=== PATIENT | male | born 1950 | race Caucasian/White ===

== ENCOUNTER 2018-10-16 02:17 | Inpatient (IN) | payer OTHER ==
[2018-10-16 02:40] LABS: ADD MAN DIFF? NO
[2018-10-16 02:42] LABS: WHITE BLOOD COUNT 7.1 10^3/ul (4.8-10.8)
[2018-10-16 02:42] LABS: BASOPHIL # 0.1 10^3/ul (0.0-0.1); BASOPHILS % 0.7 % (0.0-2.0); EOSINOPHILS # 0.2 10^3/ul (0.0-0.5); EOSINOPHILS % 2.8 % (0.0-7.0); HEMATOCRIT 33.3 % (42.0-52.0); LYMPHOCYTES # 0.7 10^3/ul (0.8-2.9); LYMPHOCYTES % 9.8 % (15.0-51.0); MEAN CORPUSCULAR HEMOGLOBIN 28.3 pg (29.0-33.0); MEAN CORPUSCULAR VOLUME 94.3 fl (82.0-101.0); MEAN PLATELET VOLUME 12.2 fl (7.4-10.4); MONOCYTE # 0.7 10^3/ul (0.3-0.9); MONOCYTES % 10.4 % (0.0-11.0); NEUTROPHIL # 5.4 10^3/ul (1.6-7.5); NEUTROPHILS % 75.9 % (39.0-77.0); PLATELET COUNT 156 10^3/UL (140-415); RED BLOOD COUNT 3.53 10^6/ul (4.70-6.10); RED CELL DISTRIBUTION WIDTH 16.4 % (11.5-14.5)
[2018-10-16 03:14] LABS: ALANINE AMINOTRANSFERASE 25 IU/L (13-69); ALBUMIN/GLOBULIN RATIO 1.21; ALKALINE PHOSPHATASE 51 IU/L (42-121); ANION GAP 9 (5-13); ASPARTATE AMINO TRANSFERASE 28 IU/L (15-46); BILIRUBIN,INDIRECT 0.5 mg/dl (0-1.1); BILIRUBIN,TOTAL 0.5 mg/dl (0.2-1.3); BLOOD UREA NITROGEN 23 mg/dl (7-20); CALCIUM 9.1 mg/dl (8.4-10.2); CARBON DIOXIDE 33 mmol/L (21-31); CHLORIDE 105 mmol/L (97-110); CREATININE 1.04 mg/dl (0.61-1.24); Estimated GFR > 60 mL/min (>60); GLUCOSE 120 mg/dl (70-220); POTASSIUM 4.3 mmol/L (3.5-5.1); SODIUM 147 mmol/L (135-144); TOTAL PROTEIN 7.3 g/dl (6.1-8.1)
[2018-10-16 03:15] LABS: LACTIC ACID 0.8 mmol/L (0.5-2.0)
[2018-10-16] MEDS: NITROGLYCERIN 2% 1 GM OINT PKT TD (03:15)
[2018-10-16] MEDS: FUROSEMIDE 20 MG INJ IV (03:15)
[2018-10-16 03:25] LABS: B-TYPE NATRIURETIC PEPTIDE 1420 PG/ML (0-125); TROPONIN-I < 0.012 ng/ml (0.000-0.120)
[2018-10-16 03:52] LABS: AADO2 Arterial 294.9 mmHg (7.0-24.0); Allen Test ACCEPTAB; Arterial Base Excess 3.6 mmol/L (-3.0-3); Arterial Blood Gas Oxygen Sat 99.4 mmHG (95.0-98.0); Arterial COHb 0.5 % (0.0-3.0); Arterial Fraction of Oxyhgb 98.6 % (93.0-99.0); Arterial HCO3 32.9 mmol/L (22.0-26.0); Arterial MetHb 0.3 % (0.0-1.5); Arterial Total Hemglobin 10.5 g/dl (12.0-18.0); Blood Gas PS 10; MODE MASK - BIPAP; Site Right Radial
[2018-10-16 03:55] LABS: INR 1.25; PROTIME 15.9 Sec (11.9-14.9); PT RATIO 1.2
[2018-10-16 03:56] LABS: PARTIAL THROMBOPLASTIN TIME 29.3 Sec (23.0-35.0)
[2018-10-16 05:06] LABS: AADO2 Arterial 182.1 mmHg (7.0-24.0); Allen Test ACCEPTAB; Arterial Base Excess 4.2 mmol/L (-3.0-3); Arterial Blood Gas Oxygen Sat 98.6 mmHG (95.0-98.0); Arterial COHb 0.4 % (0.0-3.0); Arterial Fraction of Oxyhgb 97.9 % (93.0-99.0); Arterial HCO3 32.9 mmol/L (22.0-26.0); Arterial MetHb 0.3 % (0.0-1.5); Arterial Total Hemglobin 10.8 g/dl (12.0-18.0); Arterial pCO2 74.3 mmhg (35-45); Blood Gas IEPAP 18/8; Blood Gas PS 10; MODE MASK - BIPAP; Site Right Radial
[2018-10-16 06:11] LABS: AADO2 Arterial 103.9 mmHg (7.0-24.0); Allen Test ACCEPTAB; Arterial Base Excess 7.1 mmol/L (-3.0-3); Arterial Blood Gas Oxygen Sat 96.5 mmHG (95.0-98.0); Arterial COHb 0.6 % (0.0-3.0); Arterial Fraction of Oxyhgb 95.7 % (93.0-99.0); Arterial HCO3 35.4 mmol/L (22.0-26.0); Arterial MetHb 0.2 % (0.0-1.5); Arterial pCO2 72.9 mmhg (35-45); Blood Gas IEPAP 18/8; Blood Gas PS 10; MODE MASK - BIPAP; Site Right Radial
[2018-10-16] MEDS ORDERED: ONDANSETRON 4 MG INJ IV (07:30)
[2018-10-16] MEDS: ALBUTEROL/IPRATROPIUM (NEB) 3 ML AMP HHN ×2 (07:39→15:09)
[2018-10-16 08:43] LABS: AADO2 Arterial 87.9 mmHg (7.0-24.0); Allen Test ACCEPTAB; Arterial Base Excess 7.2 mmol/L (-3.0-3); Arterial Blood Gas Oxygen Sat 97.9 mmHG (95.0-98.0); Arterial COHb 0.8 % (0.0-3.0); Arterial MetHb 0.1 % (0.0-1.5); Blood Gas IEPAP 22/8; Blood Gas PS 14; MODE MASK - BIPAP; Site Left Radial
[2018-10-16] MEDS: APIXABAN 5 MG TABLET PO ×3 (09:00→21:52)
[2018-10-16] MEDS ORDERED: NON-FORMULARY/PATIENT OWN MED (Simvastatin* (Zocor*) 10 MG) PO (09:00)
[2018-10-16] MEDS ORDERED: APIXABAN 5 MG TABLET PO (09:00)
[2018-10-16] MEDS: METHYLPREDNISOLONE 125 MG INJ IV ×3 (11:22→21:52)
[2018-10-16] MEDS: METOCLOPRAMIDE 10 MG TAB PO ×3 (11:22→21:52)
[2018-10-16] MEDS: FINASTERIDE 5 MG TAB PO (11:22)
[2018-10-16] MEDS: BENAZEPRIL 10 MG TAB PO (11:23)
[2018-10-16] MEDS: FENOFIBRATE 145 MG TAB PO (11:23)
[2018-10-16] MEDS: FUROSEMIDE 40 MG INJ IV ×2 (11:26→18:06)
[2018-10-16 11:59] LABS: HEMOGLOBIN A1C 5.3 % (0-5.9)
[2018-10-16 13:09] LABS: ADD UMIC YES; UR ASCORBIC ACID NEGATIVE (NEGATIVE); UR BACTERIA MODERATE /HPF (NONE SEEN); UR BILIRUBIN (Dip) NEGATIVE (NEGATIVE); UR BLOOD (Dip) 3+ mg/dL (NEGATIVE); UR CLARITY CLEAR (CLEAR); UR COLOR YELLOW (YELLOW); UR GLUCOSE (Dip) NEGATIVE (NEGATIVE); UR KETONES (Dip) NEGATIVE (NEGATIVE); UR LEUKOCYTE ESTERASE (Dip) TRACE Leu/ul (NEGATIVE); UR NITRITE (Dip) NEGATIVE (NEGATIVE); UR RBC > 182 /HPF (0-5); UR SPECIFIC GRAVITY (Dip) 1.008 (1.003-1.030); UR TOTAL PROTEIN (Dip) 2+ mg/dl (NEGATIVE); UR UROBILINOGEN (Dip) NEGATIVE (NEGATIVE); UR WBC 6 /HPF (0-5)
[2018-10-16 13:30] LABS: AADO2 Arterial 220.1 mmHg (7.0-24.0); Allen Test ACCEPTAB; Arterial Base Excess -6.1 mmol/L (-3.0-3); Arterial Blood Gas Oxygen Sat 97.8 mmHG (95.0-98.0); Arterial COHb 0.1 % (0.0-3.0); Arterial Fraction of Oxyhgb 97.5 % (93.0-99.0); Arterial HCO3 17.1 mmol/L (22.0-26.0); Arterial MetHb 0.2 % (0.0-1.5); Arterial Total Hemglobin 12.1 g/dl (12.0-18.0); Arterial pCO2 27.3 mmhg (35-45); Blood Gas IEPAP 15/5; Blood Gas PS 10; MODE MASK - BIPAP; Site Right Radial
[2018-10-16] MEDS: LEVOFLOXACIN 750MG/D5W (PMX) 150 ML IVPB (13:33)
[2018-10-16] MEDS: LORATADINE 10 MG TAB PO (21:52)
[2018-10-16] MEDS: ATORVASTATIN 10 MG TAB PO (21:52)
[2018-10-16] MEDS: TERAZOSIN 5 MG CAP PO (23:16)
[2018-10-17] MEDS: ALBUTEROL/IPRATROPIUM (NEB) 3 ML AMP HHN ×3 (00:17→16:55)
[2018-10-17] MEDS: METHYLPREDNISOLONE 125 MG INJ IV ×3 (06:38→21:18)
[2018-10-17] MEDS: FUROSEMIDE 40 MG INJ IV (06:38)
[2018-10-17 07:16] LABS: ADD MAN DIFF? NO
[2018-10-17 07:25] LABS: WHITE BLOOD COUNT 8.5 10^3/ul (4.8-10.8)
[2018-10-17 07:25] LABS: ABNORMAL IP MESSAGE 1; BASOPHILS % 0.1 % (0.0-2.0); HEMATOCRIT 33.1 % (42.0-52.0); HEMOGLOBIN 10.3 g/dl (14.0-18.0); LYMPHOCYTES # 0.5 10^3/ul (0.8-2.9); LYMPHOCYTES % 5.8 % (15.0-51.0); MEAN CORPUSCULAR HEMOGLOBIN 28.5 pg (29.0-33.0); MEAN CORPUSCULAR HGB CONC 31.1 g/dl (32.0-37.0); MEAN CORPUSCULAR VOLUME 91.4 fl (82.0-101.0); MEAN PLATELET VOLUME 12.4 fl (7.4-10.4); MONOCYTE # 0.3 10^3/ul (0.3-0.9); MONOCYTES % 3.1 % (0.0-11.0); NEUTROPHIL # 7.7 10^3/ul (1.6-7.5); NEUTROPHILS % 90.5 % (39.0-77.0); PLATELET COUNT 181 10^3/UL (140-415); POSITIVE DIFF @See below; RED BLOOD COUNT 3.62 10^6/ul (4.70-6.10); RED CELL DISTRIBUTION WIDTH 16.2 % (11.5-14.5)
[2018-10-17 07:41] LABS: MAGNESIUM 1.7 mg/dl (1.7-2.5)
[2018-10-17 07:41] LABS: PHOSPHORUS 4.1 mg/dl (2.5-4.9)
[2018-10-17 07:45] LABS: BLOOD UREA NITROGEN 22 mg/dl (7-20); CALCIUM 9.4 mg/dl (8.4-10.2); CHLORIDE 95 mmol/L (97-110); CREATININE 0.97 mg/dl (0.61-1.24); Estimated GFR > 60 mL/min (>60); GLUCOSE 127 mg/dl (70-220); POTASSIUM 3.8 mmol/L (3.5-5.1); SODIUM 144 mmol/L (135-144)
[2018-10-17 07:52] LABS: ANION GAP 9 (5-13)
[2018-10-17 08:02] LABS: CARBON DIOXIDE 40 mmol/L (21-31)
[2018-10-17] MEDS: FENOFIBRATE 145 MG TAB PO (08:14)
[2018-10-17] MEDS: BENAZEPRIL 10 MG TAB PO (08:14)
[2018-10-17] MEDS: FINASTERIDE 5 MG TAB PO (08:14)
[2018-10-17] MEDS: BISOPROLOL 5 MG TAB PO (08:14)
[2018-10-17] MEDS: APIXABAN 5 MG TABLET PO ×2 (08:15→21:18)
[2018-10-17] MEDS: METOCLOPRAMIDE 10 MG TAB PO ×3 (08:15→21:18)
[2018-10-17] MEDS: LEVOFLOXACIN 750MG/D5W (PMX) 150 ML IVPB (12:09)
[2018-10-17] MEDS: FUROSEMIDE 40 MG TAB PO (17:45)
[2018-10-17] MEDS: ACETAMINOPHEN 325 MG TAB PO (18:36)
[2018-10-17] MEDS: LORATADINE 10 MG TAB PO (21:18)
[2018-10-17] MEDS: ATORVASTATIN 10 MG TAB PO (21:18)
[2018-10-17] MEDS: TERAZOSIN 5 MG CAP PO (21:19)
[2018-10-18] MEDS: ALBUTEROL/IPRATROPIUM (NEB) 3 ML AMP HHN ×3 (00:34→15:39)
[2018-10-18] MEDS: METHYLPREDNISOLONE 125 MG INJ IV (06:41)
[2018-10-18] MEDS: FUROSEMIDE 40 MG TAB PO ×2 (06:42→18:17)
[2018-10-18 07:50] LABS: ADD MAN DIFF? NO
[2018-10-18 07:54] LABS: ABNORMAL IP MESSAGE 1; BASOPHILS % 0.1 % (0.0-2.0); HEMATOCRIT 33.1 % (42.0-52.0); HEMOGLOBIN 10.6 g/dl (14.0-18.0); LYMPHOCYTES # 0.4 10^3/ul (0.8-2.9); LYMPHOCYTES % 3.8 % (15.0-51.0); MEAN CORPUSCULAR HEMOGLOBIN 28.6 pg (29.0-33.0); MEAN CORPUSCULAR VOLUME 89.2 fl (82.0-101.0); MEAN PLATELET VOLUME 12.4 fl (7.4-10.4); MONOCYTE # 0.4 10^3/ul (0.3-0.9); MONOCYTES % 3.7 % (0.0-11.0); NEUTROPHIL # 10.3 10^3/ul (1.6-7.5); NEUTROPHILS % 91.9 % (39.0-77.0); PLATELET COUNT 191 10^3/UL (140-415); POSITIVE DIFF @See below; RED BLOOD COUNT 3.71 10^6/ul (4.70-6.10); RED CELL DISTRIBUTION WIDTH 16.4 % (11.5-14.5)
[2018-10-18 07:54] LABS: WHITE BLOOD COUNT 11.3 10^3/ul (4.8-10.8)
[2018-10-18] MEDS: FENOFIBRATE 145 MG TAB PO (08:32)
[2018-10-18] MEDS: FINASTERIDE 5 MG TAB PO (08:32)
[2018-10-18] MEDS: METOCLOPRAMIDE 10 MG TAB PO ×3 (08:32→20:08)
[2018-10-18] MEDS: BISOPROLOL 5 MG TAB PO (08:32)
[2018-10-18] MEDS: BENAZEPRIL 10 MG TAB PO (08:32)
[2018-10-18] MEDS: APIXABAN 5 MG TABLET PO ×2 (08:32→20:08)
[2018-10-18 08:36] LABS: BLOOD UREA NITROGEN 31 mg/dl (7-20); CALCIUM 9.1 mg/dl (8.4-10.2); CHLORIDE 97 mmol/L (97-110); CREATININE 0.91 mg/dl (0.61-1.24); Estimated GFR > 60 mL/min (>60); GLUCOSE 141 mg/dl (70-220); POTASSIUM 3.4 mmol/L (3.5-5.1); SODIUM 145 mmol/L (135-144)
[2018-10-18 08:43] LABS: ANION GAP 8 (5-13)
[2018-10-18 08:46] LABS: MAGNESIUM 1.8 mg/dl (1.7-2.5)
[2018-10-18 09:00] LABS: CARBON DIOXIDE 40 mmol/L (21-31)
[2018-10-18] MEDS ORDERED: MAGNESIUM SULFATE 2 GM/50 ML 50 ML IVPB (09:30)
[2018-10-18] MEDS: POTASSIUM CHLORIDE (SR) 20 MEQ TAB PO (10:25)
[2018-10-18] MEDS: predniSONE 20 MG TAB PO (10:25)
[2018-10-18] MEDS: MAGNESIUM SULFATE 1 GM/D5W 100 ML IVPB ×2 (10:36→11:36)
[2018-10-18] MEDS ORDERED: CEFEPIME 1GM/50 ML (PMX) 50 ML IVPB (11:00)
[2018-10-18] MEDS: ERTAPENEM SODIUM 1 GM in SOD CHLORIDE 0.9% 100 ML IVPB (12:39)
[2018-10-18] MEDS: FLUTICASONE/VILANTEROL 100-25 INH (13:33)
[2018-10-18] MEDS: ALBUTEROL 0.083% (NEB) 2.5 MG/3 ML AMP HHN (19:50)
[2018-10-18] MEDS: ATORVASTATIN 10 MG TAB PO (20:08)
[2018-10-18] MEDS: LORATADINE 10 MG TAB PO (20:08)
[2018-10-18] MEDS: TERAZOSIN 5 MG CAP PO (20:08)
[2018-10-19] MEDS ORDERED: BISOPROLOL 5 MG TAB PO (09:00)
== END 2018-10-18 20:23 | DRG 291 ==
LOC: TEL 10-18 13:49 → E/R 02:17 → TEL 05:33
PROVIDERS: Legal Medicine
PROC: 5A09357 Assistance with Respiratory Ventilation, Less than 24 Consecutive Hours, Continuous Positive Airway Pressure (ICD-10-PCS; principal; 2018-10-16)
DX: I11.0 Hypertensive heart disease with heart failure (principal); J96.02 Acute respiratory failure with hypercapnia; G93.41 Metabolic encephalopathy; J18.9 Pneumonia, unspecified organism; J96.01 Acute respiratory failure with hypoxia; J44.1 Chronic obstructive pulmonary disease with (acute) exacerbation; N39.0 Urinary tract infection, site not specified; I50.33 Acute on chronic diastolic (congestive) heart failure; I48.2 Chronic atrial fibrillation; N40.0 Benign prostatic hyperplasia without lower urinary tract symptoms; J68.4 Chronic respiratory conditions due to chemicals, gases, fumes and vapors; E78.5 Hyperlipidemia, unspecified; D63.8 Anemia in other chronic diseases classified elsewhere; K21.9 Gastro-esophageal reflux disease without esophagitis; E11.9 Type 2 diabetes mellitus without complications
CPT/HCPCS: 36415; 36600; 70450; 71045; 80048; 80053; 81001; 82803; 82962; 83036; 83605; 83735; 83880; 84100; 84484; 85025; 85610; 85730; 87040; 87086; 87400; 93005; 93306; 94640; 94660; 96374; 97116; 97162; 97530; 99291-25

== ENCOUNTER 2018-12-10 06:57 | Inpatient (IN) | payer OTHER ==
[2018-12-10] MEDS: CEFEPIME 2GM/50 ML (PMX) 50 ML IVPB (07:40)
[2018-12-10] MEDS: ACETAMINOPHEN 500 MG TAB PO (07:40)
[2018-12-10 07:44] LABS: ABNORMAL IP MESSAGE 1; MEAN CORPUSCULAR HEMOGLOBIN 26.5 pg (29.0-33.0); MEAN CORPUSCULAR HGB CONC 29.5 g/dl (32.0-37.0); MEAN PLATELET VOLUME 11.7 fl (7.4-10.4); NUCLEATED RED BLOOD CELLS% 0.5 /100WBC (0.0-0.0); PLATELET COUNT 209 10^3/UL (140-415); POSITIVE DIFF @See below; RED BLOOD COUNT 2.11 10^6/ul (4.70-6.10); RED CELL DISTRIBUTION WIDTH 20.2 % (11.5-14.5)
[2018-12-10 07:44] LABS: WHITE BLOOD COUNT 13.1 10^3/ul (4.8-10.8)
[2018-12-10] MEDS: ALBUTEROL 0.083% (NEB) 2.5 MG/3 ML AMP INH (07:49)
[2018-12-10 07:55] LABS: ADD MAN DIFF? YES; HEMOGLOBIN 5.6 g/dl (14.0-18.0)
[2018-12-10 08:04] LABS: ALANINE AMINOTRANSFERASE 26 IU/L (13-69); ALBUMIN 3.3 g/dl (3.3-4.9); ALKALINE PHOSPHATASE 79 IU/L (42-121); ANION GAP 12 (5-13); ASPARTATE AMINO TRANSFERASE 38 IU/L (15-46); BILIRUBIN,INDIRECT 0.5 mg/dl (0-1.1); BILIRUBIN,TOTAL 0.5 mg/dl (0.2-1.3); BLOOD UREA NITROGEN 30 mg/dl (7-20); CALCIUM 8.8 mg/dl (8.4-10.2); CARBON DIOXIDE 27 mmol/L (21-31); CHLORIDE 103 mmol/L (97-110); CREATININE 1.25 mg/dl (0.61-1.24); Estimated GFR 57 mL/min (>60); GLUCOSE 122 mg/dl (70-220); SODIUM 142 mmol/L (135-144); TOTAL PROTEIN 6.3 g/dl (6.1-8.1)
[2018-12-10 08:05] LABS: INR 2.02; PROTIME 22.9 Sec (11.9-14.9); PT RATIO 1.8
[2018-12-10 08:06] LABS: PARTIAL THROMBOPLASTIN TIME 41.5 Sec (23.0-35.0)
[2018-12-10 08:16] LABS: B-TYPE NATRIURETIC PEPTIDE 2560 PG/ML (0-125); TROPONIN-I 0.016 ng/ml (0.000-0.120)
[2018-12-10 08:29] LABS: PATH REVIEW? YES
[2018-12-10 08:30] LABS: ANISOCYTOSIS 2+ (0-0); BAND NEUTROPHILS #M 1.9 10^3/ul (0.0-0.6); BAND NEUTROPHILS % (M) 15 % (0-4); EOSINOPHILS % (M) 1 % (0-7); ERYTHROBLAST% (NRBC) (M) 1 % (0-0); HYPOCHROMASIA 1+ (0-0); LYMPHOCYTES #M 0.9 10^3/ul (0.8-2.9); LYMPHOCYTES % (M) 7 % (15-51); METAMYELOCYTES #M 0.1 10^3/ul (0.0-0.0); METAMYELOCYTES %M 1 % (0-0); MICROCYTOSIS 1+ (0-0); MONOCYTE #M 0.9 10^3/ul (0.3-0.9); MONOCYTES % (M) 7 % (0-11); OVALOCYTES 1+ (0-0); PLATELET ESTIMATE NORMAL; POIKILOCYTOSIS 1+ (0-0); POLYCHROMASIA 3+ (0-0); SEG NEUT #M 9.3 10^3/ul (1.6-7.5); SEGMENTED NEUTROPHILS (M) % 69 % (39-77); SMUDGE%M 1 % (0-0)
[2018-12-10] MEDS: SODIUM CHLORIDE 0.9% 1L BAG IV* (09:03)
[2018-12-10] MEDS: VANCOMYCIN 1 GM (PMX) 250 ML IVPB (09:03)
[2018-12-10] MEDS ORDERED: ZOLPIDEM 5 MG TAB PO (12:00)
[2018-12-10] MEDS ORDERED: NACL 0.9% 3 ML SYG IV (12:00)
[2018-12-10] MEDS ORDERED: ACETAMINOPHEN 325 MG TAB PO (12:00)
[2018-12-10] MEDS ORDERED: ONDANSETRON 4 MG INJ IV ×2 (12:00)
[2018-12-10] MEDS: SOD CHLORIDE 0.9% 250 ML IV* (12:08)
[2018-12-10 12:21] LABS: TOTAL IRON BINDING CAPACITY 372 ug/dl (241-421)
[2018-12-10] MEDS ORDERED: BISOPROLOL 5 MG TAB PO (12:30)
[2018-12-10 12:32] LABS: IRON < 10 ug/dl (35-150)
[2018-12-10] MEDS: LEVOFLOXACIN 500MG/D5W (PMX) 100 ML IVPB (15:32)
[2018-12-10] MEDS: BISOPROLOL 5 MG TAB PO (15:33)
[2018-12-10] MEDS: FUROSEMIDE 40 MG INJ IV (15:33)
[2018-12-10] MEDS: FINASTERIDE 5 MG TAB PO (15:33)
[2018-12-10] MEDS: BENAZEPRIL 10 MG TAB PO (15:34)
[2018-12-10] MEDS: [UNRECOGNIZED DRUG - REMARK] XX (16:17)
[2018-12-10 16:43] LABS: HEMOGLOBIN 7.1 g/dl (14.0-18.0)
[2018-12-10 17:13] LABS: IMMEDIATE SPIN CROSSMATCH 1 3
[2018-12-10] MEDS: METOPROLOL 25 MG TAB PO (21:06)
[2018-12-10] MEDS: TERAZOSIN 5 MG CAP PO (21:07)
[2018-12-10 23:05] LABS: HEMOGLOBIN 7.8 g/dl (14.0-18.0)
[2018-12-11 01:04] LABS: HEMOGLOBIN 7.8 g/dl (14.0-18.0)
[2018-12-11] MEDS: PANTOPRAZOLE 40 MG INJ IV (05:23)
[2018-12-11 06:22] LABS: ADD MAN DIFF? NO
[2018-12-11 06:23] LABS: WHITE BLOOD COUNT 10.9 10^3/ul (4.8-10.8)
[2018-12-11 06:23] LABS: BASOPHIL # 0.1 10^3/ul (0.0-0.1); BASOPHILS % 0.5 % (0.0-2.0); EOSINOPHILS # 0.1 10^3/ul (0.0-0.5); HEMATOCRIT 24.4 % (42.0-52.0); HEMOGLOBIN 7.6 g/dl (14.0-18.0); LYMPHOCYTES # 0.7 10^3/ul (0.8-2.9); LYMPHOCYTES % 6.2 % (15.0-51.0); MEAN CORPUSCULAR HEMOGLOBIN 27.9 pg (29.0-33.0); MEAN CORPUSCULAR HGB CONC 31.1 g/dl (32.0-37.0); MEAN CORPUSCULAR VOLUME 89.7 fl (82.0-101.0); MEAN PLATELET VOLUME 11.8 fl (7.4-10.4); MONOCYTES % 9.1 % (0.0-11.0); NEUTROPHILS % 82.1 % (39.0-77.0); NUCLEATED RED BLOOD CELLS # 0.1 10^3/ul (0.0-0.0); NUCLEATED RED BLOOD CELLS% 0.7 /100WBC (0.0-0.0); PLATELET COUNT 212 10^3/UL (140-415); RED BLOOD COUNT 2.72 10^6/ul (4.70-6.10); RED CELL DISTRIBUTION WIDTH 18.7 % (11.5-14.5)
[2018-12-11 06:24] LABS: HEMOGLOBIN 7.7 g/dl (14.0-18.0)
[2018-12-11 06:32] LABS: HEMOGLOBIN A1C 5.4 % (0-5.9)
[2018-12-11 06:41] LABS: INR 1.55; PROTIME 18.7 Sec (11.9-14.9); PT RATIO 1.5
[2018-12-11 06:45] LABS: ANION GAP 13 (5-13); BLOOD UREA NITROGEN 25 mg/dl (7-20); CALCIUM 8.5 mg/dl (8.4-10.2); CARBON DIOXIDE 28 mmol/L (21-31); CHLORIDE 103 mmol/L (97-110); CREATININE 0.92 mg/dl (0.61-1.24); Estimated GFR > 60 mL/min (>60); GLUCOSE 100 mg/dl (70-220); POTASSIUM 4.3 mmol/L (3.5-5.1); SODIUM 144 mmol/L (135-144)
[2018-12-11] MEDS: FUROSEMIDE 40 MG TAB PO (08:37)
[2018-12-11] MEDS: FINASTERIDE 5 MG TAB PO (08:37)
[2018-12-11] MEDS: BENAZEPRIL 10 MG TAB PO (08:38)
[2018-12-11] MEDS: METOPROLOL 25 MG TAB PO ×2 (08:38→21:26)
[2018-12-11] MEDS: LEVOFLOXACIN 500MG/D5W (PMX) 100 ML IVPB (08:39)
[2018-12-11] MEDS: FUROSEMIDE 40 MG INJ IV (10:29)
[2018-12-11 12:26] LABS: HEMOGLOBIN 8.1 g/dl (14.0-18.0)
[2018-12-11] MEDS: BISACODYL (EC) 5 MG TAB PO (17:33)
[2018-12-11] MEDS: MAGNESIUM CITRATE 300 ML BTL PO (18:16)
[2018-12-11 18:35] LABS: HEMOGLOBIN 8.3 g/dl (14.0-18.0)
[2018-12-11] MEDS: POLYETHYLENE GLYCOL 3350 119 GM POWDER PO (21:24)
[2018-12-11] MEDS: ACETAMINOPHEN 325 MG TAB PO (21:29)
[2018-12-11] MEDS: TERAZOSIN 5 MG CAP PO (21:29)
[2018-12-12] MEDS: POLYETHYLENE GLYCOL 3350 119 GM POWDER PO (05:49)
[2018-12-12] MEDS: PANTOPRAZOLE 40 MG INJ IV ×2 (05:49→21:19)
[2018-12-12 06:10] LABS: ADD MAN DIFF? NO
[2018-12-12 06:28] LABS: WHITE BLOOD COUNT 8.6 10^3/ul (4.8-10.8)
[2018-12-12 06:28] LABS: BASOPHIL # 0.1 10^3/ul (0.0-0.1); BASOPHILS % 0.8 % (0.0-2.0); EOSINOPHILS # 0.3 10^3/ul (0.0-0.5); EOSINOPHILS % 3.2 % (0.0-7.0); HEMATOCRIT 27.3 % (42.0-52.0); HEMOGLOBIN 8.4 g/dl (14.0-18.0); LYMPHOCYTES % 11.5 % (15.0-51.0); MEAN CORPUSCULAR HEMOGLOBIN 27.5 pg (29.0-33.0); MEAN CORPUSCULAR HGB CONC 30.8 g/dl (32.0-37.0); MEAN CORPUSCULAR VOLUME 89.5 fl (82.0-101.0); MONOCYTE # 0.8 10^3/ul (0.3-0.9); MONOCYTES % 9.4 % (0.0-11.0); NEUTROPHIL # 6.3 10^3/ul (1.6-7.5); NEUTROPHILS % 73.5 % (39.0-77.0); NUCLEATED RED BLOOD CELLS% 0.3 /100WBC (0.0-0.0); PLATELET COUNT 246 10^3/UL (140-415); RED BLOOD COUNT 3.05 10^6/ul (4.70-6.10); RED CELL DISTRIBUTION WIDTH 18.6 % (11.5-14.5)
[2018-12-12 06:38] LABS: INR 1.46; PROTIME 17.8 Sec (11.9-14.9); PT RATIO 1.4
[2018-12-12 06:59] LABS: ANION GAP 12 (5-13); BLOOD UREA NITROGEN 19 mg/dl (7-20); CALCIUM 8.7 mg/dl (8.4-10.2); CARBON DIOXIDE 30 mmol/L (21-31); CHLORIDE 104 mmol/L (97-110); CREATININE 0.78 mg/dl (0.61-1.24); Estimated GFR > 60 mL/min (>60); GLUCOSE 98 mg/dl (70-220); POTASSIUM 3.7 mmol/L (3.5-5.1); SODIUM 146 mmol/L (135-144)
[2018-12-12] MEDS ORDERED: LIDOCAINE 2% (SDV) 5 ML INJ (07:00)
[2018-12-12] MEDS: LEVOFLOXACIN 500MG/D5W (PMX) 100 ML IVPB (08:41)
[2018-12-12] MEDS: BISACODYL (EC) 5 MG TAB PO (08:41)
[2018-12-12] MEDS: FINASTERIDE 5 MG TAB PO (08:42)
[2018-12-12] MEDS: METOPROLOL 25 MG TAB PO ×2 (08:43→21:19)
[2018-12-12] MEDS: BENAZEPRIL 10 MG TAB PO (08:43)
[2018-12-12] MEDS: FUROSEMIDE 40 MG TAB PO (08:46)
[2018-12-12] MEDS: FUROSEMIDE 40 MG INJ IV (13:56)
[2018-12-12] MEDS: ETOMIDATE 20 MG INJ (16:12)
[2018-12-12] MEDS ORDERED: LEVALBUTEROL (NEB) 1.25 MG/0.5 ML AMP HHN (16:30)
[2018-12-12] MEDS ORDERED: hydrALAzine 20 MG INJ IV (16:30)
[2018-12-12] MEDS ORDERED: FENTAnyl 50 MCG/ML VIAL IV (16:30)
[2018-12-12] MEDS ORDERED: LABETALOL HCL 20MG INJ IV (16:30)
[2018-12-12] MEDS ORDERED: IPRATROPIUM (NEB) 0.5 MG/2.5 ML AMP HHN (16:30)
[2018-12-12] MEDS: SUCRALFATE (100 MG/ML) 10ML CUP PO ×2 (18:42→21:19)
[2018-12-12] MEDS: METOCLOPRAMIDE 10 MG TAB PO (21:19)
[2018-12-12] MEDS: TERAZOSIN 5 MG CAP PO (21:20)
[2018-12-13] MEDS: METOCLOPRAMIDE 10 MG TAB PO ×2 (06:10→13:27)
[2018-12-13] MEDS: FINASTERIDE 5 MG TAB PO (09:01)
[2018-12-13] MEDS: BENAZEPRIL 10 MG TAB PO (09:01)
[2018-12-13] MEDS: METOPROLOL 25 MG TAB PO (09:02)
[2018-12-13] MEDS: LEVOFLOXACIN 500MG/D5W (PMX) 100 ML IVPB (09:02)
[2018-12-13] MEDS: SUCRALFATE (100 MG/ML) 10ML CUP PO ×3 (09:02→17:17)
[2018-12-13] MEDS: PANTOPRAZOLE 40 MG INJ IV (09:02)
[2018-12-13] MEDS: FUROSEMIDE 40 MG INJ IV ×2 (09:03→17:18)
== END 2018-12-13 20:30 | DRG 193 ==
LOC: E/R 06:57 → TEL 11:53
PROVIDERS: Internal Medicine
PROC: 0DB78ZX Excision of Stomach, Pylorus, Via Natural or Artificial Opening Endoscopic, Diagnostic (ICD-10-PCS; principal; 2018-12-12 15:35)
PROC: 0DJD8ZZ Inspection of Lower Intestinal Tract, Via Natural or Artificial Opening Endoscopic (ICD-10-PCS; 2018-12-12 15:35)
DX: J18.9 Pneumonia, unspecified organism (principal); I50.33 Acute on chronic diastolic (congestive) heart failure; D62 Acute posthemorrhagic anemia; K92.2 Gastrointestinal hemorrhage, unspecified; K22.10 Ulcer of esophagus without bleeding; I11.0 Hypertensive heart disease with heart failure; D64.9 Anemia, unspecified; I48.91 Unspecified atrial fibrillation; Z79.02 Long term (current) use of antithrombotics/antiplatelets; K26.9 Duodenal ulcer, unspecified as acute or chronic, without hemorrhage or perforation; K22.5 Diverticulum of esophagus, acquired; K29.70 Gastritis, unspecified, without bleeding; K64.8 Other hemorrhoids
CPT/HCPCS: 36415; 36430; 71045; 80048; 80053; 83036; 83540; 83605; 83880; 84484; 85018; 85025; 85610; 85730; 86850; 86900; 86901; 86920; 87040; 88305; 88312; 88313; 93005; 94664; 96365; 96366; 96368; 97161; 99291-25

== ENCOUNTER 2018-12-26 18:28 | Observation (INO) | payer OTHER ==
[2018-12-26 22:52] LABS: ADD MAN DIFF? NO
[2018-12-26 22:53] LABS: WHITE BLOOD COUNT 9.6 10^3/ul (4.8-10.8)
[2018-12-26 22:53] LABS: BASOPHIL # 0.1 10^3/ul (0.0-0.1); BASOPHILS % 0.6 % (0.0-2.0); EOSINOPHILS # 0.1 10^3/ul (0.0-0.5); EOSINOPHILS % 0.9 % (0.0-7.0); HEMATOCRIT 29.4 % (42.0-52.0); HEMOGLOBIN 9.1 g/dl (14.0-18.0); LYMPHOCYTES # 1.2 10^3/ul (0.8-2.9); MEAN CORPUSCULAR HEMOGLOBIN 27.4 pg (29.0-33.0); MEAN CORPUSCULAR VOLUME 88.6 fl (82.0-101.0); MEAN PLATELET VOLUME 10.4 fl (7.4-10.4); MONOCYTE # 1.1 10^3/ul (0.3-0.9); MONOCYTES % 11.9 % (0.0-11.0); NEUTROPHIL # 7.1 10^3/ul (1.6-7.5); NEUTROPHILS % 74.4 % (39.0-77.0); PLATELET COUNT 266 10^3/UL (140-415); RED BLOOD COUNT 3.32 10^6/ul (4.70-6.10); RED CELL DISTRIBUTION WIDTH 18.6 % (11.5-14.5)
[2018-12-26] MEDS: SODIUM CHLORIDE 0.9% 1L BAG IV* (23:01)
[2018-12-26 23:12] LABS: INR 1.12; PROTIME 14.5 Sec (11.9-14.9); PT RATIO 1.1
[2018-12-26 23:13] LABS: PARTIAL THROMBOPLASTIN TIME 31.8 Sec (23.0-35.0)
[2018-12-26 23:16] LABS: ALANINE AMINOTRANSFERASE 16 IU/L (13-69); ALBUMIN 3.7 g/dl (3.3-4.9); ALBUMIN/GLOBULIN RATIO 1.08; ALKALINE PHOSPHATASE 85 IU/L (42-121); ANION GAP 11 (5-13); ASPARTATE AMINO TRANSFERASE 28 IU/L (15-46); BILIRUBIN,INDIRECT 0.9 mg/dl (0-1.1); BILIRUBIN,TOTAL 0.9 mg/dl (0.2-1.3); BLOOD UREA NITROGEN 11 mg/dl (7-20); CALCIUM 9.6 mg/dl (8.4-10.2); CARBON DIOXIDE 29 mmol/L (21-31); CHLORIDE 100 mmol/L (97-110); CREATININE 0.76 mg/dl (0.61-1.24); Estimated GFR > 60 mL/min (>60); GLUCOSE 101 mg/dl (70-220); POTASSIUM 3.7 mmol/L (3.5-5.1); SODIUM 140 mmol/L (135-144); TOTAL PROTEIN 7.1 g/dl (6.1-8.1)
[2018-12-26 23:27] LABS: B-TYPE NATRIURETIC PEPTIDE 1750 PG/ML (0-125); TROPONIN-I < 0.012 ng/ml (0.000-0.120)
[2018-12-26 23:41] LABS: ADD UMIC YES; UR ASCORBIC ACID NEGATIVE (NEGATIVE); UR BACTERIA FEW /HPF (NONE SEEN); UR BILIRUBIN (Dip) NEGATIVE (NEGATIVE); UR BLOOD (Dip) NEGATIVE (NEGATIVE); UR CLARITY CLEAR (CLEAR); UR COLOR YELLOW (YELLOW); UR GLUCOSE (Dip) NEGATIVE (NEGATIVE); UR KETONES (Dip) NEGATIVE (NEGATIVE); UR LEUKOCYTE ESTERASE (Dip) 2+ Leu/ul (NEGATIVE); UR NITRITE (Dip) NEGATIVE (NEGATIVE); UR RBC 1 /HPF (0-5); UR SPECIFIC GRAVITY (Dip) 1.005 (1.003-1.030); UR TOTAL PROTEIN (Dip) NEGATIVE (NEGATIVE); UR UROBILINOGEN (Dip) NEGATIVE (NEGATIVE); UR WBC 18 /HPF (0-5)
[2018-12-27] MEDS: CEFEPIME 1GM/50 ML (PMX) 50 ML IVPB (01:58)
[2018-12-27] MEDS: VANCOMYCIN 1 GM (PMX) 250 ML IVPB (02:28)
[2018-12-27 03:57] LABS: LACTIC ACID 0.7 mmol/L (0.5-2.0)
[2018-12-27] MEDS ORDERED: ONDANSETRON 4 MG INJ IV (05:30)
[2018-12-27] MEDS: PANTOPRAZOLE (EC) 40 MG TAB PO (05:50)
[2018-12-27] MEDS ORDERED: VANCOMYCIN IV PER PHARMACY XX (08:00)
[2018-12-27] MEDS: FUROSEMIDE 40 MG INJ IV ×3 (08:00→18:21)
[2018-12-27] MEDS: PIPER-TAZO 3.375 GM IV (PMX) 100 ML IVPB ×3 (09:39→18:22)
[2018-12-27] MEDS: BENAZEPRIL 10 MG TAB PO (09:41)
[2018-12-27] MEDS ORDERED: ALBUTEROL/IPRATROPIUM (NEB) 3 ML AMP INH (10:00)
[2018-12-27] MEDS ORDERED: ZOLPIDEM 5 MG TAB PO (10:00)
[2018-12-27] MEDS: VANCOMYCIN 750 MG (PMX) 250 ML IVPB (11:28)
[2018-12-27] MEDS: ACETAMINOPHEN 325 MG TAB PO ×2 (11:28→20:50)
[2018-12-27] MEDS: FINASTERIDE 5 MG TAB PO (11:28)
[2018-12-27] MEDS: VANCOMYCIN HCL 1.25 GM in SOD CHLORIDE 0.9% 250 ML IVPB (20:41)
[2018-12-27] MEDS: ATORVASTATIN 10 MG TAB PO (20:43)
[2018-12-27] MEDS: METOPROLOL 50 MG TAB PO (20:44)
[2018-12-27] MEDS: TERAZOSIN 5 MG CAP PO (20:45)
[2018-12-27] MEDS ORDERED: VANCOMYCIN HCL 1.25 GM in SOD CHLORIDE 0.9% 250 ML IVPB (21:00)
[2018-12-28] MEDS: PIPER-TAZO 3.375 GM IV (PMX) 100 ML IVPB ×2 (00:10→06:22)
[2018-12-28 05:24] LABS: ADD MAN DIFF? NO
[2018-12-28 05:40] LABS: WHITE BLOOD COUNT 9.1 10^3/ul (4.8-10.8)
[2018-12-28 05:40] LABS: BASOPHIL # 0.1 10^3/ul (0.0-0.1); BASOPHILS % 0.8 % (0.0-2.0); EOSINOPHILS # 0.2 10^3/ul (0.0-0.5); EOSINOPHILS % 2.5 % (0.0-7.0); HEMATOCRIT 31.1 % (42.0-52.0); HEMOGLOBIN 9.4 g/dl (14.0-18.0); LYMPHOCYTES % 11.4 % (15.0-51.0); MEAN CORPUSCULAR HGB CONC 30.2 g/dl (32.0-37.0); MEAN CORPUSCULAR VOLUME 89.4 fl (82.0-101.0); MEAN PLATELET VOLUME 10.8 fl (7.4-10.4); MONOCYTE # 1.1 10^3/ul (0.3-0.9); MONOCYTES % 11.8 % (0.0-11.0); NEUTROPHIL # 6.7 10^3/ul (1.6-7.5); NEUTROPHILS % 73.2 % (39.0-77.0); PLATELET COUNT 222 10^3/UL (140-415); RED BLOOD COUNT 3.48 10^6/ul (4.70-6.10); RED CELL DISTRIBUTION WIDTH 18.6 % (11.5-14.5)
[2018-12-28 06:04] LABS: ANION GAP 7 (5-13); BLOOD UREA NITROGEN 10 mg/dl (7-20); CALCIUM 9.1 mg/dl (8.4-10.2); CARBON DIOXIDE 31 mmol/L (21-31); CHLORIDE 103 mmol/L (97-110); Estimated GFR > 60 mL/min (>60); GLUCOSE 96 mg/dl (70-220); POTASSIUM 3.5 mmol/L (3.5-5.1); SODIUM 141 mmol/L (135-144)
[2018-12-28] MEDS: FUROSEMIDE 40 MG INJ IV ×2 (06:22→17:15)
[2018-12-28] MEDS: PANTOPRAZOLE (EC) 40 MG TAB PO (06:22)
[2018-12-28] MEDS: FINASTERIDE 5 MG TAB PO (08:56)
[2018-12-28] MEDS: METOPROLOL 50 MG TAB PO (08:57)
[2018-12-28] MEDS: BENAZEPRIL 10 MG TAB PO (08:57)
[2018-12-28] MEDS ORDERED: MEROPENEM 1 GM/50ML(PMX) 50 ML IVPB (14:00)
[2018-12-28] MEDS: LIDOCAINE 1% (MPF) 5 ML VIAL SC (15:30)
[2018-12-28] MEDS: ERTAPENEM SODIUM 1 GM in SOD CHLORIDE 0.9% 100 ML IVPB (16:11)
== END 2018-12-28 19:35 | disposition home health service (06) ==
LOC: E/R 18:28 → 6WM 12-27 01:37
DX: J18.9 Pneumonia, unspecified organism (principal); I48.91 Unspecified atrial fibrillation; N40.0 Benign prostatic hyperplasia without lower urinary tract symptoms
CPT/HCPCS: 36415; 36569; 71045; 76937; 80048; 80053; 81001; 83605; 83880; 84484; 85025; 85610; 85730; 87040; 87081; 87086; 93005; 97116; 97161; 97530; 99285-25; G0378